=== PATIENT | female | born 1965 | race Caucasian/White ===

== ENCOUNTER → 2017-02-21 | Outpatient (CLI) | payer BC ==
[~2017-02-21] MED LIST: ASCO10003 PO; ASPI81TA28 PO; CALC500C73 PO; CHOL1TAB12 PO; FLEC50TA20 PO; METO25TA56 PO; SELE200T9 PO; ZOLP10TA PO
== END | disposition home or self-care (01) ==
LOC: C.PAPS 11:26
PROVIDERS: ATTEND Obstetrics & Gynecology
DX: Z01.419 Encounter for gynecological examination (general) (routine) without abnormal findings (principal)

== ENCOUNTER → 2017-02-27 | Outpatient (CLI) | payer BC | END | disposition home or self-care (01) | LOC: C.LAB1850 13:17 | PROVIDERS: ATTEND Obstetrics & Gynecology | DX: M85.80 Other specified disorders of bone density and structure, unspecified site (principal) ==

== ENCOUNTER → 2017-07-27 | Outpatient (CLI) | payer OTHER ==
--- NOTE | 2017-07-27 09:47 | DIAGNOSTIC IMAGING REPORT ---
CHEST 2 VIEWS ROUTINE CLINICAL HISTORY: J45.909 [id number] [id number] Chest [id number] pain COMPARISON STUDY: 01/13/2014 FINDINGS: The bones soft tissues and hemidiaphragms are normal. The cardiomediastinal silhouette is normal. The lungs are clear. The pulmonary vasculature is normal. IMPRESSION: Negative chest. The above report was generated using voice recognition software. It may contain grammatical, syntax or spelling errors. Electronically signed by: Ildefonso Sanchez M.D. 07/27/2017 9:46 AM Dictated Date/Time: 07/27/2017 9:44 AM
== END | disposition home or self-care (01) ==
LOC: C.RAD1850 09:26
PROVIDERS: ATTEND Internal Medicine Pulmonary Disease
DX: J45.909 Unspecified asthma, uncomplicated (principal); R07.9 Chest pain, unspecified; R05 Cough; R00.2 Palpitations

== ENCOUNTER → 2017-07-28 | Outpatient (CLI) | payer OTHER ==
[~2017-07-28] MED LIST changes: +OPTIRAY 320 IV PRN
--- NOTE | 2017-07-28 12:01 | DIAGNOSTIC IMAGING REPORT ---
CHEST ANGIO WITH CONTRAST CT DOSE: 221.55 mGy.cm HISTORY: 52 years-old Female presents with acute chest pain and cough. History of asthma TECHNIQUE: Multiple CTA images of the chest were obtained after the intravenous administration of 93 ml Optiray 320. Coronal and sagittal MIPS were obtained from the axial data set and were submitted for review. A dose lowering technique was utilized adhering to the principles of ALARA. COMPARISON: Chest radiographs 07/27/2017. FINDINGS: CTA: Heart is normal in size without pericardial effusion. Thoracic aorta is normal in both course and caliber without aneurysm or dissection. Imaged great vessels are patent. The opacified pulmonary arterial tree is unremarkable without focal filling defects to suggest pulmonary thromboembolic disease. CT CHEST: Thyroid is mildly heterogeneous without dominant nodule identified. Nonspecific mildly prominent bilateral axillary lymph nodes are seen measuring up to 9 mm. Bilateral breast augmentation with saline implants. No evidence of capsular rupture. No pneumothorax, pleural effusion, focal airspace consolidation or overt pulmonary edema. 3 mm solid pulmonary nodule involves the left upper lobe, image 261 series 4. Mild dependent bibasilar atelectasis. The central airways are patent. The imaged upper abdominal structures demonstrate no acute abnormality. Soft tissues are unremarkable. Bones appear intact. IMPRESSION: 1. No acute intrathoracic abnormality identified, specifically no acute aortic pathology or evidence of pulmonary thromboembolic disease. 2. 3 mm solid pulmonary nodule of the left upper lobe is likely benign. 3. No lobar airspace consolidation to suggest pneumonia. 4. Mildly prominent lymph nodes of the bilateral axillary chains are seen measuring up to 9 mm. Please refer to below summary of Fleischner criteria recommendations for follow-up of incidental CT nodules ([facility], Guidelines for management of small pulmonary nodules detected on CT scans: A statement from the Fleischner Society, Radiology 237: [phone].) SOLID NODULES Solitary nodule size: <6 mm * Low risk patients: no follow-up needed * high risk patients: optional CT at 12 months Note: newly detected indeterminate nodule in persons 35 years of age or older. * Low risk patients: minimal or absent history of smoking and/or other known risk factors * high risk patients: history of smoking or of other known risk factors (e.g. first degree relative with lung cancer, or exposure to asbestos, radon, uranium) * if a nodule up to 8 mm is partly solid or is ground glass further follow-up is required after 24 months to exclude possible slow growing adenocarcinoma (IVA) The above report was generated using voice recognition software. It may contain grammatical, syntax or spelling errors. Electronically signed by: Ishaan Sanchez M.D. 07/28/2017 12:00 PM Dictated Date/Time: 07/28/2017 11:38 AM
== END | disposition home or self-care (01) ==
LOC: C.CTS 07-27 10:25
PROVIDERS: ATTEND Internal Medicine Pulmonary Disease
DX: J45.909 Unspecified asthma, uncomplicated (principal); R05 Cough; R07.9 Chest pain, unspecified

== ENCOUNTER → 2018-03-01 | Outpatient (CLI) | payer OTHER ==
[~2018-03-01] MED LIST changes: -OPTIRAY 320 IV PRN
[2018-03-01 16:14] LABS: BLOOD UREA NITROGEN 13 mg/dl (7-18); CREATININE 0.89 mg/dl (0.60-1.20); POTASSIUM 3.6 mmol/L (3.5-5.1); SODIUM 138 mmol/L (136-145)
== END | disposition home or self-care (01) ==
LOC: C.LAB 14:59
PROVIDERS: ATTEND Physician Assistant
DX: Z01.818 Encounter for other preprocedural examination (principal)